=== PATIENT | female | born 2000 ===

== ENCOUNTER 2025-01-29 20:25 | Emergency (ER) | payer SELFPAY ==
[2025-01-29 20:43] VITALS: BP 107/67; PULSE 88; RESP 16; TEMP 37.1; O2SAT 100; BMI 17.6
[2025-01-29 21:16] LABS: MANUAL DIFF FLAG NO
[2025-01-29 21:17] LABS: Hematocrit 34.2 % (37.0-47.0); Hemoglobin 10.8 g/dl (12.0-16.0); Imm Gran Abs Auto 0.01 X10*3/uL (0.00-0.03); Imm Gran Pct Auto 0.1 % (0.0-0.4); Lymphocytes Absolute Auto 2.5 X10*3/uL (1.2-4.9); Mean Corpuscular HGB Conc 31.6 g/dl (31.0-35.0); Mean Corpuscular Hemoglobin 24.5 pg (27.0-33.0); Mean Corpuscular Volume 77.7 fL (80.0-98.0); NRBC Abs Auto 0.000 X10*3/uL (0.0-0.012); NRBC Pct Auto 0.0 /100WBC (0.0-0.2); Platelet Count 267 X10*3/uL (160-400); Red Blood Count 4.40 X10*6/uL (4.20-5.50); White Blood Count 7.7 X10*3/uL (4.8-10.8)
[2025-01-29 21:26] LABS: IDNOW Serial# 6674DD1D; Strep A Nucleic Acid Negative (Negative)
[2025-01-29 21:32] LABS: Alanine Aminotransferase 10 U/L (0-31); Albumin Level 4.6 g/dL (3.5-5.0); Alkaline Phosphatase 68 U/L (39-117); Anion Gap 12 (12-20); Aspartate Amino Transferase 18 U/L (5-31); Blood Urea Nitrogen 11 mg/dL (9-16); Calcium 9.3 mg/dL (8.4-10.2); Carbon Dioxide 26 mmol/L (22-29); Chloride 105 mmol/L (96-108); Creatinine Clr Calc Pharmacy 119.6; Estimated Glomerular Filt Rate > 60; Lipase 27 U/L (8-78); Magnesium 2.1 mg/dL (1.6-2.6); Potassium 4.4 mmol/L (3.3-5.1); Sodium 139 mmol/L (135-145); Total Protein 7.7 g/dL (6.5-8.0)
[2025-01-29 21:55] LABS: Resp Syncy Virus RNA Qual PCR NEGATIVE (Negative); SARS COV2 PCR INHOUSE NEGATIVE (Negative)
--- NOTE | 2025-01-29 22:51 | PC.NURSE ---
patient approached t/w while speaking w/ registration asking how many people are ahead of her on the list. T/w explained to patient that number of people ahead of her has no indication as to how much longer she will be waiting, apologized for the delay. Patient states she just wants to know how many people are ahead of her I was told somebody had a list and I want to know where I am on it. Attempted to again explain to patient that people are brought back d/t severity of need. Patient then again demanded to know how many people are in front of her. Informed patient 9 patient have been waiting longer then her. Patient then stated, okay then I will go get my care somewhere else . Patient observed walking out of dept w/ steady gait.
== END 2025-01-30 00:08 | disposition left against medical advice (07) ==
LOC: HO.ED 23:17
PROVIDERS: Emergency Provider Emergency Medicine
DX: R10.9 Unspecified abdominal pain (principal); Z03.818 Encounter for observation for suspected exposure to other biological agents ruled out; Z53.21 Procedure and treatment not carried out due to patient leaving prior to being seen by health care provider
CPT/HCPCS: 80053; 82248; 83690; 83735; 85025; 87637; 87651; 99281